=== PATIENT | female | born 1990 | race Caucasian/White ===

== ENCOUNTER 2018-04-12 10:05 | Emergency (ER) | payer OTHER ==
[2018-04-12] MEDS ORDERED: IPRATROPIUM-ALBUTEROL 3 ML NEB INHALATION STA ×2 (10:16→11:15)
[2018-04-12] MEDS ORDERED: methylPREDNISolone SOD SUCCI 125 MG/2 ML VIAL IV STA (10:17)
--- NOTE | 2018-04-12 10:25 | ED ---
General Adult HPI - General Chief complaint: Shortness of Breath Stated complaint: SOB Time Seen by Provider: 04/12/18 10:09 Source: patient, family, RN notes reviewed Mode of arrival: wheelchair Limitations: no limitations - History of Present Illness Initial comments: 27-year-old female presents to the emergency department for a chief complaint of shortness of breath 2 days. Patient states she has a history of asthma. She states she was cleaning her house yesterday when she started to develop wheezing and shortness of breath. She states she has been trying breathing treatments throughout the night but has not been getting relief. Patient states she did take one oral tablet of prednisone at home. Patient admits to coughing but states this only just started when she began to feel wheezing. She states she is short of breath secondary to wheezing. She denies any unilateral leg swelling, recent travel, hemoptysis, recent surgery. Patient has no other complaints at this time including shortness of breath, chest pain, abdominal pain, nausea or vomiting, headache, or visual changes. - Related Data Home Medications Medication Instructions Recorded Confirmed Albuterol Inhaler [Ventolin 2 puff INHALATION Q6HR PRN 10/25/13 10/25/13 Inhaler] Fluticasone Propionate [Flonase] 1 spray EA NOSTRIL BID 10/25/13 10/25/13 Fluticasone Propionate [Flovent 250 mcg IH 10/25/13 10/25/13 Diskus] Previous Rx's Medication Instructions Recorded Azithromycin [Zithromax Z-pack] 0 mg PO DIRECTED #6 tab 10/26/13 predniSONE 20 mg PO BID #8 tab 10/26/13 predniSONE 50 mg PO DAILY #5 tablet 04/12/18 Allergies Allergy/AdvReac Type Severity Reaction Status Date / Time alcohol Allergy Rash/Hives Verified 04/12/18 10:08 guaifenesin [From Robitussin] Allergy Rash/Hives Verified 04/12/18 10:08 Latex, Natural Rubber Allergy Rash/Hives Verified 04/12/18 10:08 Penicillins Allergy Dyspnea Verified 04/12/18 10:08 Review of Systems ROS Statement: Those systems with pertinent positive or pertinent negative responses have been documented in the HPI. ROS Other: All systems not noted in ROS Statement are negative. Past Medical History Past Medical History: Asthma Additional Past Medical History / Comment(s): eczema History of Any Multi-Drug Resistant Organisms: None Reported Past Surgical History: No Surgical Hx Reported Past Psychological History: No Psychological Hx Reported Smoking Status: Never smoker Past Alcohol Use History: None Reported Past Drug Use History: None Reported General Exam Limitations: no limitations General appearance: alert, in no apparent distress Head exam: Present: atraumatic, normocephalic, normal inspection Eye exam: Present: normal appearance, PERRL, EOMI. Absent: scleral icterus, conjunctival injection, periorbital swelling ENT exam: Present: normal exam, mucous membranes moist Neck exam: Present: normal inspection, full ROM. Absent: tenderness, meningismus, lymphadenopathy Respiratory exam: Present: wheezes (Wheezing noted throughout all lung lopez), other (Patient is mildly tachpneic, is not currently in respiratory distress, handling secretions). Absent: respiratory distress, rales, rhonchi, stridor Cardiovascular Exam: Present: normal rhythm, tachycardia, normal heart sounds. Absent: systolic murmur, diastolic murmur, rubs, gallop, clicks Neurological exam: Present: alert, oriented X3, CN II-XII intact Psychiatric exam: Present: normal affect, normal mood Course Vital Signs 04/12/18 04/12/18 04/12/18 10:06 10:23 10:42 Temperature 98.4 F Pulse Rate 132 H 130 H 132 H Respiratory 25 H Rate Blood Pressure 108/71 O2 Sat by Pulse 97 Oximetry 04/12/18 04/12/18 04/12/18 11:28 11:42 11:47 Temperature 98.1 F Pulse Rate 116 H 118 H 72 Respiratory 22 Rate Blood Pressure 119/75 O2 Sat by Pulse 97 Oximetry Medical Decision Making - Medical Decision Making 27-year-old female presents to the emergency department for a chief complaint of shortness of breath due to asthma exacerbation. Patient states this has been going on since yesterday when she began to clean her house. She has been using DuoNeb at home but it has only been helping minimally. Patient states she does feel very wheezy. She denies chest pain. On exam patient does have wheezing noted bilaterally. On presentation patient does have a respiratory rate of 25 but is 97% on room air. Chest x-ray shows clear lungs and a normal chest. Patient was given 3 duo nebs and Decadron. She refused IV or IM Decadron and instead requested oral Decadron. Peak flow 260. Patient unsure what her normal peak flow is. On reevaluation patient states she is feeling better. She states she feels comfortable going home. Vitals have stabilized. Patient is no longer tachycardic and has a heart rate of 72. Respiratory rate is normal at 22 and patient is 97% on room air which has been consistent. At this time patient will be discharged home. She does agree to return if she has any worsening symptoms. Mother agrees that she will be with her throughout the day and will return if she has worsening symptoms. Otherwise they will follow up with primary care in the next 1-2 days. Disposition Clinical Impression: Asthma exacerbation Disposition: HOME SELF-CARE Condition: Good Instructions: Asthma (ED) Additional Instructions: Please take steroids as directed starting tomorrow. Please continue to use nebulizer and inhaler at home. If you have worsening symptoms return to the emergency department. Otherwise follow-up with your primary care provider in one to 2 days. Prescriptions: predniSONE 50 mg PO DAILY #5 tablet Is patient prescribed a controlled substance at d/c from ED?: No Referrals: Nonstaff,Physician [Primary Care Provider] - 1-2 days Time of Disposition: 12:37
--- NOTE | 2018-04-12 10:56 | XR ---
EXAMINATION TYPE: XR chest 2V DATE OF EXAM: 04/12/2018 HISTORY: Pain. REFERENCE: Previous study dated 10/26/2013. FINDINGS: The lungs are clear. Pleural space are clear. The heart is not enlarged. IMPRESSION: NORMAL CHEST.
[2018-04-12] MEDS ORDERED: DEXAMETHASONE SOD PHOSPHATE 10 MG/ML 1 ML VIAL PO STA (11:01)
[2018-04-12 11:50] VITALS: RESP 22; TEMP 98.1
[2018-04-12 13:09] VITALS: BP 102/60; PULSE 108
== END 2018-04-12 13:08 | disposition home or self-care (01) ==
LOC: EC 10:05
DX: J45.901 Unspecified asthma with (acute) exacerbation (principal); R00.0 Tachycardia, unspecified; Z88.0 Allergy status to penicillin; Z88.8 Allergy status to other drugs, medicaments and biological substances; Z91.040 Latex allergy status; Z91.048 Other nonmedicinal substance allergy status; Z79.51 Long term (current) use of inhaled steroids; Z53.20 Procedure and treatment not carried out because of patient's decision for unspecified reasons
CPT/HCPCS: 94640 ×2; 71046; 99285; J1100

== ENCOUNTER 2023-11-30 13:56 | Emergency (ER) | payer OTHER ==
--- NOTE | 2023-11-30 14:16 | ED ---
General Adult HPI - General Stated complaint: dental pain Time Seen by Provider: 11/30/23 14:01 Source: patient, RN notes reviewed Mode of arrival: ambulatory Limitations: no limitations - History of Present Illness Initial comments: 33-year-old female presents emergency department complaint of upper dental pain. Patient states started last couple days she states has been using [id number] medications with minimal relief she is increasing swelling. Denies any fevers or chills no difficulty swallowing no other complaints. She states her dentist was closed unable to follow-up yet. - Related Data Home Medications Medication Instructions Recorded Confirmed Albuterol Inhaler [Ventolin 2 puff INHALATION Q6HR PRN 10/25/13 10/25/13 Inhaler] Fluticasone Propionate [Flonase] 1 spray EA NOSTRIL BID 10/25/13 10/25/13 Fluticasone Propionate [Flovent 250 mcg IH 10/25/13 10/25/13 Diskus] Previous Rx's Medication Instructions Recorded Azithromycin [Zithromax Z-pack (6 0 mg PO DIRECTED #6 tab 10/26/13 tabs)] predniSONE [Deltasone] 20 mg PO BID #8 tab 10/26/13 predniSONE 50 mg PO DAILY #5 tablet 04/12/18 Ibuprofen [Motrin] 600 mg PO Q8HR PRN #20 tab 11/30/23 clindamycin HCL 300 mg PO QID #40 cap 11/30/23 Allergies Allergy/AdvReac Type Severity Reaction Status Date / Time alcohol Allergy Rash/Hives Verified 11/30/23 14:27 guaifenesin [From Robitussin] Allergy Rash/Hives Verified 11/30/23 14:27 Latex, Natural Rubber Allergy Rash/Hives Verified 11/30/23 14:27 Penicillins Allergy Dyspnea Verified 11/30/23 14:27 Review of Systems ROS Statement: Those systems with pertinent positive or pertinent negative responses have been documented in the HPI. ROS Other: All systems not noted in ROS Statement are negative. Past Medical History Past Medical History: Asthma Additional Past Medical History / Comment(s): eczema History of Any Multi-Drug Resistant Organisms: None Reported Past Surgical History: No Surgical Hx Reported Past Psychological History: No Psychological Hx Reported Past Alcohol Use History: None Reported Past Drug Use History: None Reported General Exam General appearance: alert, in no apparent distress Head exam: Present: atraumatic, normocephalic, normal inspection Eye exam: Present: normal appearance, PERRL, EOMI. Absent: scleral icterus, conjunctival injection, periorbital swelling ENT exam: Present: mucous membranes moist, TM's normal bilaterally, normal external ear exam. Absent: normal oropharynx (Upper lip, facial swelling noted no drainable abscess) Neck exam: Present: normal inspection, full ROM. Absent: tenderness, meningismus, lymphadenopathy Respiratory exam: Present: normal lung sounds bilaterally. Absent: respiratory distress, wheezes, rales, rhonchi, stridor Cardiovascular Exam: Present: regular rate, normal rhythm, normal heart sounds. Absent: systolic murmur, diastolic murmur, rubs, gallop, clicks Course Vital Signs 11/30/23 14:24 Temperature 98.4 F Pulse Rate 79 Respiratory 18 Rate Blood Pressure 120/79 O2 Sat by Pulse 98 Oximetry Medical Decision Making - Medical Decision Making Was pt. sent in by a medical professional or institution (, PA, FOOD QUALITY TECHNICIAN, urgent care, hospital, or intermediate...) When possible be specific @ -No Did you speak to anyone other than the patient for history (EMS, parent, family, police, friend...)? What history was obtained from this source @ -No Did you review nursing and triage notes (agree or disagree)? Why? @ -I reviewed and agree with nursing and triage notes Were old charts reviewed (outside hosp., previous admission, EMS record, old EKG, old radiological studies, urgent care reports/EKG's, intermediate records)? Report findings @ -No old charts were reviewed Differential Diagnosis (chest pain, altered mental status, abdominal pain women, abdominal pain men, vaginal bleeding, weakness, fever, dyspnea, syncope, headache, dizziness, GI bleed, back pain, seizure, CVA, palpatations, mental health, musculoskeletal)? @ -Dental infection, dental abscess, tooth ache EKG interpreted by me (3pts min.). @ -None X-rays interpreted by me (1pt min.). @ -None done CT interpreted by me (1pt min.). @ -None done U/S interpreted by me (1pt. min.). @ -None done What testing was considered but not performed or refused? (CT, X-rays, U/S, labs)? Why? @ -None What meds were considered but not given or refused? Why? @ -None Did you discuss the management of the patient with other professionals (professionals i.e. , PA, FOOD QUALITY TECHNICIAN, lab, RT, psych nurse, rn social work, precision assembly inspector, teacher, security public safety officer, case aide)? Give summary @ -No Was smoking cessation discussed for >3mins.? @ -No Was critical care preformed (if so, how long)? @ -No Were there social determinants of health that impacted care today? How? (Homelessness, low income, unemployed, alcoholism, drug addiction, transportation, low edu. Level, literacy, decrease access to med. care, longterm, rehab)? @ -No Was there de-escalation of care discussed even if they declined (Discuss DNR or withdrawal of care, Hospice)? DNR status @ -No What co-morbidities impacted this encounter? (DM, HTN, Smoking, COPD, CAD, Cancer, CVA, ARF, Chemo, Hep., AIDS, mental health diagnosis, sleep apnea, morbid obesity)? @ -None Was patient admitted / discharged? Hospital course, mention meds given and route, prescriptions, significant lab abnormalities, going to OR and other pertinent info. @ -Discharge patient has upper dental infection no drainable abscess started on clindamycin as she has known allergy to penicillin products. Patient discharged with analgesics return georgette discussed she will follow-up with dentist on Friday Undiagnosed new problem with uncertain prognosis? @ -No Drug Therapy requiring intensive monitoring for toxicity (Heparin, Nitro, Insulin, Cardizem)? @ -No Were any procedures done? @ -No Diagnosis/symptom? @ -Dental infection Acute, or Chronic, or Acute on Chronic? @ -Acute Uncomplicated (without systemic symptoms) or Complicated (systemic symptoms)? @ -Uncomplicated Side effects of treatment? @ -No Exacerbation, Progression, or Severe Exacerbation? @ -No Poses a threat to life or bodily function? How? (Chest pain, [place], [place], pneumonia, PE, COPD, DKA, ARF, appy, cholecystitis, CVA, Diverticulitis, Homicidal, Suicidal, threat to staff... and all critical care pts) @ -No Disposition Clinical Impression: Dental infection Disposition: HOME SELF-CARE Condition: Stable Instructions (If sedation given, give patient instructions): Dental Abscess (ED) Additional Instructions: Please return to the Emergency Department if symptoms worsen or any other concerns. Prescriptions: clindamycin HCL 300 mg PO QID #40 cap Ibuprofen [Motrin] 600 mg PO Q8HR PRN #20 tab PRN Reason: Pain Is patient prescribed a controlled substance at d/c from ED?: No Referrals: None,Stated [Primary Care Provider] - 1-2 days Time of Disposition: 14:14
[2023-11-30 14:27] VITALS: RESP 18
[2023-11-30] MEDS: ACET/COD 300 MG/30 MG STARTER PACK 6 TAB BTL PO STA (15:01)
[2023-11-30 15:08] VITALS: BP 120/68; PULSE 72; TEMP 97.9
== END 2023-11-30 16:22 | disposition home or self-care (01) ==
LOC: EC 13:56
DX: K04.7 Periapical abscess without sinus (principal); Z88.0 Allergy status to penicillin; Z91.040 Latex allergy status; Z88.8 Allergy status to other drugs, medicaments and biological substances
CPT/HCPCS: 99282